=== PATIENT | female | born 1990 | race Caucasian/White ===

== ENCOUNTER 2018-09-15 22:08 | Emergency (ER) | payer MEDICAID, SELFPAY ==
[2018-09-15 22:09] VITALS: BP 127/69; PULSE 105; RESP 15; TEMP 37; BMI 50.1
--- NOTE | 2018-09-15 23:15 | ED.VIS.GEN ---
History of Present Illness Chief Complaint: Abscess Informant: Patient Onset: Days - 5-6 Context: Gradual Onset Timing: Continuous Quality: sore, swollen Location: scar Current Severity: Mild Maximum Severity: Moderate Worsened by: palpation Relieved by: since rupturing and draining earlier tonight Associated Symptoms: subjective fever yest Narrative: Patient has a scar that is about 1.5 years old. Spontaneously developed what appeared to be a small suture abscess at the beginning of this past week, saw her OB who put her on doxycycline and she states that it did not seem to help. Things progressively became worse throughout the week, until it ruptured today, with blood and purulent discharge. Pain is improved but it is still sore. Past Medical History - Allergies and Home Meds Allergies/Adverse Reactions: Allergies iodine Allergy (Verified 09/15/18 22:12) Hives Sulfa (Sulfonamide Antibiotics) Allergy (Verified 09/15/18 22:12) Hives azithromycin [From Zithromax] Adverse Reaction (Verified 09/15/18 22:12) Nausea/Vom/Diarrhea Primary Care Physician: Kalyan Zepeda MD [Primary Care Provider] - Past Medical History: None Lives: Spouse/ Significant Other Smoking Status: Never smoker Review of Systems General: Reports: Fever, Subjective. Denies: Malaise Gastrointestinal: Reports: Abdominal pain, Nausea - Today. Denies: Vomiting, Diarrhea Skin: Reports: Rash, Abscess Physical Exam Vital Signs/Narrative: Vital Signs Temp Pulse Resp BP 09/15/18 22:09 98.6 F 105 H 15 127/69 H Inital Vital Signs reviewed: Yes General: Well nourished, Well developed, Obese, No Acute Distress Head: Normocephalic, Atraumatic Eyes: Perrl, EOMI Abdomen: Soft, Nondistended, Normal bowel sounds, Tender - Only at abdominal wall low transverse scar abscess. Very small hole is present, there is serosanguineous mild discharge present. Nursing cleaned up purulent material and sent a culture prior to my evaluation. Surrounding cellulitis around 7-8 cm in diameter. No significant tenderness or fluctuance there. Extremities: Nontender, No edema Skin: Rash - See abdominal exam above. Surrounding cellulitis. Neurological: Alert, Oriented x3, Cranial nerves II-XII grossly intact, Normal Strength, Normal Sensation, Normal Gait Psychological: Normal affect, Normal Mood Diagnostic/Tx/Re-eval - Medical Decision Making Patient states she had quite a bit of purulent material come out. And pressing fairly firmly, I can express no more gross pus. I do not think she needs any further I&D at this time, I would do frequent dressing changes, continue antibiotics, and she was given a dose of vancomycin 15 mg/kg adjusted body weight, which is 86 kg, here in the emergency department. She was only given a week of doxycycline, but she is slated to follow-up for reevaluation the day after tomorrow on Monday, we will outline the erythematous area for reevaluation of it then. She is comfortable with this plan. ED Disposition - Plan for ED Patient: Disposition: Home or Assisted Living Diagnosis: Cutaneous abscess of abdominal wall Instructions: ED Abscess IandD Referrals: Kalyan Zepeda MD [Primary Care Provider] - Doctor,Your [STAFF PHYSICIAN] - 09/17/18 (your ENVIRONMENTAL HEALTH SANITARIAN)
[2018-09-16 01:47] VITALS: BP 131/82; PULSE 73; RESP 15; O2SAT 100
== END 2018-09-16 01:51 | disposition home or self-care (01) ==
LOC: ED 23:29
PROVIDERS: Emergency Provider Emergency Medicine; Family Provider Family Medicine; PCP Family Medicine
DX: L02.211 Cutaneous abscess of abdominal wall (principal); E66.9 Obesity, unspecified; Z79.2 Long term (current) use of antibiotics
CPT/HCPCS: 87070; 87205; 96365; 96366; 99283; J7050

== ENCOUNTER 2020-04-12 17:59 | Emergency (ER) | payer MEDICAID, SELFPAY ==
[2018-10-03 09:52] VITALS: BMI 50.1
[2020-04-12 17:59] VITALS: BP 144/89; PULSE 83; RESP 18; TEMP 36.3; O2SAT 100; BMI 48.0
--- NOTE | 2020-04-12 18:11 | RAD_ITS ---
STUDY: X-RAY - LEFT KNEE REASON FOR EXAM: Female, 29 years old. LEFT KNEE PAIN FOR 5 DAYS. TECHNIQUE: 4 view(s) of the knee. COMPARISON: None. FINDINGS: Normal visualized distal femur. Normal visualized proximal tibia and fibula. Normal proximal tibiofibular articulation. Normal medial femorotibial compartment. Normal lateral femorotibial compartment. Normal patellofemoral articulation. Soft tissues are diffusely enlarged with lipomatosis without foreign bodies or gas. RAD/Knee 4 or More Views IMPRESSION: No acute or focal osseous findings. Electronically Signed: Paulino Chatman, at 19:23 EST Tel , Service support ,
--- NOTE | 2020-04-12 18:13 | ED.VIS.GEN ---
History of Present Illness Chief Complaint: Lower Extremity Injury Informant: Patient Onset: Days Context: Gradual Onset Timing: Intermittent Current Severity: Moderate Maximum Severity: Moderate Narrative: The patient is a 29-year-old female who is otherwise healthy the presents to the emergency department left knee pain. Patient states that about 5 days ago, she thinks that she hyperextended her knee. She states it was sore and she was changing the way that she walked. She states that she planted and twisted. She felt like the knee was going to give out. Since then, she had increasing pain in the lateral aspect of the knee. She states she is been taking ibuprofen with some improvement. Sometimes, when she is walking, she states it feels like it gets stuck. She denies any recurrent trauma. She denies any history of orthopedic surgery. She states she is otherwise been in her normal state of health. Prior similar symptoms: No Recent Illness/Hospitalization: No Past Medical History - Allergies and Home Meds Allergies/Adverse Reactions: Allergies iodine Allergy (Verified 04/12/20 18:02) Hives Sulfa (Sulfonamide Antibiotics) Allergy (Verified 04/12/20 18:02) Hives azithromycin [From Zithromax] Adverse Reaction (Verified 04/12/20 18:02) Nausea/Vom/Diarrhea Primary Care Physician: Ofelia Desouza DO [STAFF PHYSICIAN] - Prior records reviewed: Yes Past Medical History: None Surgical History: noncontributory Smoking Status: Never smoker Review of Systems General: Denies: Chills, Fever, Sweats Eyes: Denies: Visual changes - bilaterally, Diplopia ENT: Denies: Rhinorrhea, Sore throat Cardiovascular: Denies: Chest pain, Palpitations Respiratory: Denies: Dyspnea, Cough, Dyspnea on exertion Gastrointestinal: Denies: Abdominal pain, Nausea, Vomiting, Diarrhea, Melena, Hematochezia Genitourinary: Denies: Dysuria, Hematuria, Frequency Musculoskeletal: Denies: Back pain, Extremity Pain Skin: Denies: Rash, Wounds Neurological: Denies: Headache, Weakness, Numbness Physical Exam Vital Signs/Narrative: Vital Signs Temp Pulse Resp BP Pulse Ox 04/12/20 17:59 97.4 F L 83 18 144/89 H 100 Inital Vital Signs reviewed: Yes General: Well nourished, Well developed, No Acute Distress Head: Normocephalic, Atraumatic Eyes: Perrl, EOMI ENT: Moist mucous membranes, No rhinorrhea Neck: Supple, Nontender Cardiovascular: Regular rate, Regular rhythm, No murmurs Respiratory: No distress, CTA bilaterally, Chest nontender Abdomen: Soft, Nontender, Nondistended, Normal bowel sounds Back: Nontender, Normal Inspection Extremities: No edema, Tenderness - Small lateral joint effusion. Anterior posterior drawer testing negative. Extension preserved. Normal pulses. Mild pain with compression of LCL and lateral meniscus. No sticking or clicking. Skin: Normal color, No rash Neurological: Alert, Oriented x3, Cranial nerves II-XII grossly intact, Normal Strength, Normal Sensation Psychological: Normal affect, Normal Mood Diagnostic/Tx/Re-eval Clinical Impression(s) from Imaging Studies Knee X-Ray 04/12/20 18:11 IMPRESSION: No acute or focal osseous findings. Electronically Signed: Paulino Chatman, at 19:23 EST Tel , Service support , - Medical Decision Making The patient presents with left lateral knee pain. There is a small effusion. There is no gross laxity. There is no catching or clicking with compression of the meniscus. Plain films are obtained. They reviewed by the radiologist myself. There is no intrafracture dislocation. Clinically, I do for that she is likely an LCL sprain versus a slight meniscus injury. Patient is placed in an Michael wrap and be continued on anti-inflammatories. She will get outpatient orthopedic follow-up. Impression 1. Left knee sprain ED Disposition - Plan for ED Patient: Instructions: ED Sprain Knee Prescriptions: Naproxen [Naprosyn] 500 mg PO BID #20 tab Prescription Printed Referrals: Ofelia Desouza DO [STAFF PHYSICIAN] -
[2020-04-12 19:55] VITALS: BP 132/69; PULSE 74; RESP 16; O2SAT 97
== END 2020-04-12 19:56 | disposition home or self-care (01) ==
LOC: ED 18:28
PROVIDERS: Emergency Provider Emergency Medicine
DX: S83.92XA Sprain of unspecified site of left knee, initial encounter (principal); X50.1XXA Overexertion from prolonged static or awkward postures, initial encounter; Y93.89 Activity, other specified; Y92.89 Other specified places as the place of occurrence of the external cause; Y99.8 Other external cause status
CPT/HCPCS: 73564; 99282

== ENCOUNTER 2021-07-19 06:24 | Day surgery (SDC) | payer MEDICAID, SELFPAY ==
[2021-07-19 06:51] VITALS: BP 110/62; PULSE 68; RESP 18; TEMP 36.4; O2SAT 100; BMI 115.6
[2021-07-19 06:59] LABS: Internal QC Validated? YES +Cl - CLEAR BKGD; Pregnancy, Urine Negative Negative
[2021-07-19] MEDS: Lactated Ringers 1,000 ML 15 ML IV (07:01)
[2021-07-19 07:20] VITALS: BMI 52.7
--- NOTE | 2021-07-19 08:00 | PCM.DC.SUM ---
Providers Primary Care Physician: ZA RICO Reason For Visit: BMT Medications at Discharge Home Medications secukinumab 150 mg/mL subcutaneous syringe 150 mg SC Q4W 10/03/18 Weight / BMI Weight Weight: 139.253 kg Body Mass Index (BMI) 52.7 ABG / Lab / Microbiology Data Laboratory: Laboratory Results - last 24 hr 07/19/21 06:30: Urine Test Negative Microbiology: Microbiology 07/15/21 10:00 Interface Orders SARS-CoV-2 Antigen (Rapid) - Final D/C Instructions Discharge Diet: No restrictions Discharge Activity: Return to Normal Activity Additional Activity Instructions: Ear drops....5 drops each ear twice a day for 2 days (3 doses). Meaningful Use Info Meaningful Use Diagnoses (Choose all that apply): None applicable Discharge Plan Admission Attending Provider: Stuart Martinez Discharge Orders/Prescriptions Prescriptions: No Action Cosentyx 150 mg/mL syringe 150 mg SC Q4W RF: 0 Disposition Discharge Orders: Discharge Patient (Routine); Ordered 07/19/21 Ordered By: Dr. Stuart Martinez
--- NOTE | 2021-07-19 08:09 | OP.PCM_ITS ---
Report of Operation Date of Procedure: 07/19/21 Pre-Operative Diagnosis: recurrent acute otitis media Post-Operative Diagnosis: same Surgery/Procedure Performed:: bilateral myringotomy with tubes Surgeon: Stuart Martinez Type of Anesthesia: General Anesthesiologist: Kasi Trejo Estimated Blood Loss (mL): minimal Description of Procedure: The patient was taken to the operating room on 07/19/2021. The patient was placed in the supine position on the operating room table. The patient was given sufficient general anesthesia. The operating liliana roscope was used throughout the entire case. A speculum was inserted into the patient's left ear. Cerumen was removed using a curette. An incision was placed in the anterior inferior quadrant of the tympanic membrane. A Vaishali Bobin tube was placed without difficulty. Antibiotic drops were instilled into the patient's ear. Next, a speculum was inserted into the patient's right ear. Cerumen was removed using a curette. An incision was placed in the anterior inferior quadrant of the tympanic membrane. A vaishali bobin tube was placed without difficulty. Antibiotic drops were instilled into the patient's ear. The patient was then awoken. They were brought to the recovery room in stable condition. Blood loss minimal replacement none sponge needle and instrument counts correct at the end of the procedure.
[2021-07-19] MEDS: Ciprofloxacin 0.3% 2.5ml Bottle 1 DRP (08:10)
[2021-07-19 08:16] VITALS: BP 110/62; BP 97/80; PULSE 100; RESP 16; TEMP 36.6; O2SAT 95
[2021-07-19 08:30] VITALS: BP 110/62; BP 112/68; PULSE 85; RESP 16; O2SAT 96
[2021-07-19 08:36] VITALS: BP 110/62; BP 116/59; PULSE 73; RESP 16; TEMP 36.6; O2SAT 100
[2021-07-19] MEDS: Acetaminophen 325 MG Tablet 650 MG PO (08:57)
[2021-07-19 09:18] VITALS: BP 107/58; BP 110/62; PULSE 60; RESP 16; TEMP 36.5; O2SAT 99
== END 2021-07-19 23:59 | disposition home or self-care (01) ==
LOC: SDC 06:25 → AC 06:25
PROVIDERS: Anesthesiology; Referring Provider Otolaryngology; Visit Provider Otolaryngology
PROC: (CPT 69436; principal; 2021-07-19 07:55)
DX: H65.193 Other acute nonsuppurative otitis media, bilateral (principal)
CPT/HCPCS: 69436; 00126; 81025; 87426; C9803; J7120; J2405